=== PATIENT | female | born 1965 | race Caucasian/White ===

== ENCOUNTER 2019-01-05 06:31 | Day surgery (SDC) | payer OTHER ==
[2019-01-05] MEDS ORDERED: BACITRACIN/POLYMYXIN 28.35 GM OINT TOP (06:50)
[2019-01-05] MEDS ORDERED: MEPERIDINE 100 MG INJ (07:27)
[2019-01-05] MEDS ORDERED: LIDOCAINE 2% (SDV) 5 ML INJ (07:27)
[2019-01-05] MEDS ORDERED: PROPOFOL 20 ML (07:27)
[2019-01-05] MEDS ORDERED: ONDANSETRON 4 MG INJ (07:29)
[2019-01-05] MEDS ORDERED: METOCLOPRAMIDE 10 MG INJ (07:29)
[2019-01-05] MEDS ORDERED: CLINDAMYCIN 900 MG/D5W (PMX) 50 ML IVPB (07:45)
[2019-01-05] MEDS ORDERED: morphine 2 MG INJ IV (08:00)
[2019-01-05] MEDS: ROPIVACAINE 0.5 % 30 ML VIAL (08:22)
[2019-01-05] MEDS ORDERED: OXYCODONE/ACETAMINOPHEN (5/325) TAB PO ×2 (08:30)
[2019-01-05] MEDS ORDERED: HYDROmorphONE 1 MG/5 ML IV SYRINGE IV (08:30)
[2019-01-05] MEDS ORDERED: MEPERIDINE 25 MG INJ IV (08:30)
[2019-01-05] MEDS ORDERED: MIDAZOLAM 1 MG/ML 2 ML INJ IV (08:30)
[2019-01-05] MEDS ORDERED: DIPHENHYDRAMINE 50 MG INJ IV (08:30)
[2019-01-05] MEDS ORDERED: EPHEDrine SULFATE 50 MG/5 ML SYG IV (08:30)
[2019-01-05] MEDS ORDERED: hydrALAzine 20 MG INJ IV (08:30)
[2019-01-05] MEDS ORDERED: ONDANSETRON 4 MG INJ IV (08:30)
[2019-01-05] MEDS ORDERED: FENTAnyl 50 MCG/ML VIAL IV ×3 (08:30)
[2019-01-05] MEDS ORDERED: LABETALOL HCL 20MG INJ IV (08:30)
[2019-01-05] MEDS: HYDROmorphONE 1 MG/5 ML IV SYRINGE IV ×2 (09:19→09:27)
[2019-01-05] MEDS: METOCLOPRAMIDE 10 MG INJ IV (09:20)
== END 2019-01-05 11:06 | disposition home or self-care (01) ==
LOC: SDS 06:31
DX: M23.204 Derangement of unspecified medial meniscus due to old tear or injury, left knee (principal); M94.262 Chondromalacia, left knee
CPT/HCPCS: 29881; 82306